=== PATIENT | male | born 1970 ===

== ENCOUNTER 2023-01-11 23:18 | Emergency (ER) | payer SELFPAY ==
--- NOTE | 2023-01-11 23:26 | W.ED.UPPEXIN ---
Documented by User: [email or web address] Can 01/12/23 13:15 HPI - Extremity Injury (Upper) General: Chief Complaint: Extremity Injury, Upper Stated Complaint: right shoulder pain Time Seen by Provider: 01/11/23 23:25 History of Present Illness: Patient believes he might have injured his shoulder 3 weeks ago when he twisted wrong. Since then he has had increasing pain and discomfort to the right shoulder. Tonight patient was not able to get good control of his pain and came into for evaluation. Patient had last taken ibuprofen at around noon today. Patient appears nontoxic. Patient appears in moderate to severe pain. No obvious deformity is noted in the shoulder. Tenderness is noted on anterior palpation. Pain is exacerbated with movement of the shoulder. Patient states that when he injured his shoulder he was pulling and twisting a pipe out of the ground. Review of Systems General: Reports: 10 or more systems reviewed and unremarkable except in HPI and below Const: Denies: fever(s) Card: Denies: chest pain Resp: Denies: dyspnea Musc: Reports: joint pain (Right shoulder) Skin/Breast: Denies: erythema Physical Exam Const: COMMON NORMALS: alert HENMT: COMMON NORMALS: normocephalic HEAD & SCALP: normocephalic Neck/C-Spine: COMMON NORMALS: full ROM Chest: COMMONS NORMALS: normal inspection of the chest Resp: COMMON NORMALS: normal respiratory effort and clear to auscultation bilaterally AUSCULTATION: clear to auscultation bilaterally Cardio: COMMON NORMALS: regular rate and regular rhythm RATE: regular rate RHYTHM: regular rhythm GI: COMMON NORMALS: Soft to palpation and non-tender PALPATION: Yes Soft to palpation Back/Pelvis: COMMON NORMALS: thoracic and lumbar spine normal to inspection Extremity: COMMON NORMALS: full ROM Neuro: SENSORIUM/ORIENTATION: Yes alert Skin: COMMON NORMALS: turgor normal GENERAL SKIN EXAM: turgor normal Course Vital Signs: Vital signs: Vital Signs Temperature 97.9 F 01/12/23 02:15 Pulse Rate 63 01/12/23 02:15 Respiratory Rate 16 01/12/23 02:15 Blood Pressure 156/101 01/12/23 02:15 Pulse Oximetry 94 01/12/23 02:15 Oxygen Delivery Me thod Room Air 01/11/23 23:28 MDM - Extremity Injury (Upper) Medical Decision Making Patient comes in today for evaluation of injury to the right shoulder. On exam patient has tenderness to the anterior aspect of the right shoulder. Decreased range of motion due to pain. Distal pulses and sensation are intact. No significant swelling is noted distally. No obvious dislocation is noted. Differential diagnosis includes dislocated shoulder, fracture, AC joint separation, rotator cuff injury. Lab Data Radiology Impressions Shoulder X-Ray 01/11/23 23:29 IMPRESSION: Findings inconclusive for inferior subluxed humeral head for which follow-up CT exam of the right shoulder recommended. Shoulder CT 01/12/23 00:40 IMPRESSION: 1. No acute fracture. 2. There is right inferior humeral head subluxation with no actual dislocation seen. This may be attributable to rotator cuff injury and/or right shoulder effusion. Advise orthopedic follow-up. EKG Data EKG 1: EKG interpretation date: 01/11/23 EKG interpretation time: 23:54 Prior EKG tracings: not available for review Interpretation: EKG shows a sinus rhythm with a regular rate at [address] elevation or ectopy is noted. No prior exam was available for comparison. Computer generated interpretation: Sinus rhythm, probable inferior myocardial infarction, probably old. Abnormal EKG. Unconfirmed report. Discharge Plan Discharge Patient Disposition: Home Clinical Impression: Acute shoulder pain Qualifiers: Laterality: right Qualified Code(s): M25.511 - Pain in right shoulder Condition: Stable Prescriptions: New tramadol 50 mg tablet 50 mg PO Q6H PRN (Reason: pain) Qty: 20 0RF Discharge Orders: Discharge ED (Routine); Ordered 01/12/23 Ordered By: Julian Hi Patient Instructions: Shoulder Pain (ED) Activity Restrictions/Additional Instructions: please take your pain medicine as prescribed, please wear your sling until seen by the orthopedic surgeon. You have been referred to case management who will be referring you to an orthopedic surgeon for your right shoulder pain. Your shoulder is not dislocated but he may have injured the rotator cuff Stand Alone Forms: Work/School Release Coding Level of Care Code ED Maintenance And Utilities Supervisor for Tara Fwd Documented by User: Julian Hi DO 01/12/23 02:04 HPI - Extremity Injury (Upper) General: Chief Complaint: Extremity Injury, Upper Stated Complaint: right shoulder pain Time Seen by Provider: 01/11/23 23:25 Course Vital Signs: Vital signs: Vital Signs Temperature 97.9 F 01/12/23 02:15 Pulse Rate 63 01/12/23 02:15 Respiratory Rate 16 01/12/23 02:15 Blood Pressure 156/101 01/12/23 02:15 Pulse Oximetry 94 01/12/23 02:15 Oxygen Delivery Me thod Room Air 01/11/23 23:28 MDM - Extremity Injury (Upper) Differential Diagnosis Unlikely sprain and strain of wrist, fracture of wrist, finger sprain, dislocation of finger, Colles' fracture, fracture of hand, dislocation of shoulder, fracture of humerus or fracture of clavicle Medical Records I reviewed the patient's medical records. Lab Data I reviewed the patient's lab results. Radiology Impressions Shoulder X-Ray 01/11/23 23:29 IMPRESSION: Findings inconclusive for inferior subluxed humeral head for which follow-up CT exam of the right shoulder recommended. Shoulder CT 01/12/23 00:40 IMPRESSION: 1. No acute fracture. 2. There is right inferior humeral head subluxation with no actual dislocation seen. This may be attributable to rotator cuff injury and/or right shoulder effusion. Advise orthopedic follow-up. All radiology interpretation(s) finalized by discharge Discharge Plan Discharge Patient Disposition: Home Clinical Impression: Acute shoulder pain Qualifiers: Laterality: right Qualified Code(s): M25.511 - Pain in right shoulder Condition: Stable Prescriptions: New tramadol 50 mg tablet 50 mg PO Q6H PRN (Reason: pain) Qty: 20 0RF Discharge Orders: Discharge ED (Routine); Ordered 01/12/23 Ordered By: Julian Hi Patient Instructions: Shoulder Pain (ED) Activity Restrictions/Additional Instructions: please take your pain medicine as prescribed, please wear your sling until seen by the orthopedic surgeon. You have been referred to case management who will be referring you to an orthopedic surgeon for your right shoulder pain. Your shoulder is not dislocated but he may have injured the rotator cuff Stand Alone Forms: Work/School Release Coding Level of Care Code ED Maintenance And Utilities Supervisor for Tara Christie
[2023-01-11 23:28] VITALS: BP 246/129; PULSE 82; RESP 16; TEMP 36.6; O2SAT 96; BMI 25.7
--- NOTE | 2023-01-11 23:29 | XRR_ITS ---
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 States that he twisted his shoulder wrong 3 weeks ago. TECHNIQUE: Imaging protocol: Radiologic exam of the right shoulder. Views: 2 or more views. COMPARISON: No relevant prior studies available. FINDINGS: Bones/joints: The humeral head appears to be subluxed inferiorly in relation to the glenoid fossa on the three views. Findings may be artifactual related to body habitus which should be clarified on CT examination of the right shoulder to exclude partial dislocation. There is no underlying fracture. There are mild degenerative changes at the AC joint. Soft tissues: See Bones/joints finding. XR/XR shoulder RT min 2V* [id number] IMPRESSION: Findings inconclusive for inferior subluxed humeral head for which follow-up CT exam of the right shoulder recommended.
--- NOTE | 2023-01-11 23:31 | ECG_ITS ---
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 Measurements Intervals [place] Rate: 72 P: 34 NC: 148 QRS: 43 QRSD: 121 T: 58 QT: 385 QTc: 424 Interpretive Statements SINUS RHYTHM PROBABLE INFERIOR MYOCARDIAL INFARCTION , PROBABLY OLD [35 ms Q WAVE IN II/aVF] No previous ECG available for comparison Electronically Signed On 01-12-2023 0:45:48 ELECTROMEDICAL SERVICE ENGINEER by Bayron Granger M.D. [email or web address] specialty hospital [id number]
[2023-01-11] MEDS: ketorolac 30 mg/mL INJ 15 MG IVP (23:52)
[2023-01-11] MEDS: fentaNYL 50 mcg/mL INJ 2mL 65 MCG IVP (23:53)
[2023-01-11 23:55] VITALS: BP 222/122; PULSE 68; RESP 16; O2SAT 94
--- NOTE | 2023-01-12 00:40 | CTR_ITS ---
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 Twisted shoulder wrong few weeks ago per PT; Additional info: Pain, injury 2weeks ago TECHNIQUE: Imaging protocol: Computed tomography of the right upper extremity without contrast. Exam focused on the shoulder. Radiation optimization: All CT scans at this facility use at least one of these dose optimization techniques: automated exposure control; mA and/or kV adjustment per patient size (includes targeted exams where dose is matched to clinical indication); or iterative reconstruction. REPORTING DATA: Count of CT and Cardiac NM exams in prior 12 months: This patient has received 0 known CTs and 0 known cardiac nuclear medicine studies in the 12 months prior to the current study. COMPARISON: CR (CHEST, ) 01/11/2023 11:32 PM RADIATION DOSE METRICS: Total DLP (mGy-cm): 503.44 FINDINGS: Bones/joints: No acute fracture visualized. There is inferior right humeral head subluxation with no dislocation identified. A right-sided effusion is likely. Mild right shoulder DJD. Soft tissues: Normal. CT/CT shoulder RT wo con* [id number] IMPRESSION: 1. No acute fracture. 2. There is right inferior humeral head subluxation with no actual dislocation seen. This may be attributable to rotator cuff injury and/or right shoulder effusion. Advise orthopedic follow-up.
[2023-01-12] MEDS: HYDROmorphone 1 mg/mL INJ 1 mL 0.5 MG IVP (00:43)
[2023-01-12 01:17] VITALS: BP 156/101; PULSE 63; RESP 16; O2SAT 94
[2023-01-12 02:15] VITALS: BP 156/101; PULSE 63; RESP 16; TEMP 36.6; O2SAT 94
--- NOTE | 2023-01-12 08:05 | DCPLANNER ---
Referral was sent to ortho clinic on 01/12/23804. Clinic to contact patient
== END 2023-01-12 02:16 | disposition home or self-care (01) ==
PROVIDERS: Emergency Provider Nurse Practitioner Family
DX: M25.511 Pain in right shoulder (principal)
CPT/HCPCS: 73030; 73200; 93005; 96374; 96375; 99285; J1170; J1885; J3010